=== PATIENT | female | born 1990 | race Caucasian/White ===

== ENCOUNTER 2025-03-15 06:22 | Day surgery (SDC) | payer OTHER, SELFPAY | END 2025-03-15 12:12 | disposition home or self-care (01) | LOC: GI 06:22 | PROVIDERS: ATTENDING PHYSICIAN Internal Medicine | DX: D50.9 Iron deficiency anemia, unspecified (principal); K64.8 Other hemorrhoids; D51.9 Vitamin B12 deficiency anemia, unspecified; K44.9 Diaphragmatic hernia without obstruction or gangrene; K22.89 Other specified disease of esophagus; K31.7 Polyp of stomach and duodenum; K31.89 Other diseases of stomach and duodenum; K29.50 Unspecified chronic gastritis without bleeding; K22.70 Barrett's esophagus without dysplasia; K31.A11 Gastric intestinal metaplasia without dysplasia, involving the antrum | CPT/HCPCS: 45378; 43239; 88305; 88342 ==